=== PATIENT | female | born 2000 | race Caucasian/White ===

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

== ENCOUNTER → 2022-01-19 06:24 | Outpatient (CLI) | payer OTHER, SELFPAY ==
[2022-01-23 00:08] LABS: Neisseria gonorrhoeae, NAA Negative (Negative)
== END ==
PROVIDERS: Visit Provider Obstetrics & Gynecology
DX: Z11.3 Encounter for screening for infections with a predominantly sexual mode of transmission (principal)
CPT/HCPCS: 87491; 87591

== ENCOUNTER → 2022-03-21 10:28 | Outpatient (CLI) | payer OTHER, SELFPAY ==
[2022-03-21 10:54] LABS: Basophils # 0.1 K/mm3 (0-0.2); Basophils % 1.3 % (0.1-2.0); Eosinophils # 0.2 K/mm3 (0.0-0.4); Eosinophils % 3.3 % (0.1-12.0); Hematocrit 40.2 % (37.0-47.0); Hemoglobin 12.9 g/dL (12.2-16.2); Lymphocytes # 1.7 K/mm3 (0.7-4.5); Lymphocytes % 26.5 % (10-50); Mean Corpuscular HGB Conc 32.2 g/dL (31.8-35.4); Mean Corpuscular Hemoglobin 28.9 pg (27.0-31.2); Mean Corpuscular Volume 89.9 fl (81-99); Mean Platelet Volume 8.2 fl (7.4-10.4); Monocytes # 0.2 K/mm3 (0.1-1.0); Monocytes % 3.7 % (1.7-9.3); Neutrophils # 4.1 K/mm3 (1.8-7.8); Neutrophils % 65.2 % (37.0-80.0); Platelet Count 306 K/mm3 (142-424); Red Blood Count 4.48 M/mm3 (4.20-5.40); Red Cell Distribution Width 15.1 % (11.5-17.5); White Blood Count 6.3 K/mm3 (4.5-13.0)
[2022-03-21 11:12] LABS: Alanine Aminotransferase 20 U/L (12-78); Albumin Level 4.9 g/dl (3.5-5.0); Albumin/Globulin Ratio 1.8 (1.1-1.8); Alkaline Phosphatase 67 U/L (38-126); Anion Gap 19.8 mEq/L (5-15); Aspartate Amino Transferase 26 U/L (14-36); Bilirubin,Total 0.5 mg/dl (0.2-1.3); Blood Urea Nitrogen 13 mg/dl (7-17); Calcium 9.8 mg/dl (8.4-10.2); Carbon Dioxide 28 mmol/L (22.0-30.0); Chloride 95 mmol/L (98-107); Estimated Glomerular Filt Rate 129 ml/min (>60); GFR (African American) 156 ML/MIN (>60); Globulin 2.7 g/dL (1.3-3.2); Glucose 85 mg/dl (74-100); Potassium 3.8 mmoL/L (3.5-5.1); Sodium 139 mmol/L (136-145); Total Protein,Serum 7.6 g/dl (6.3-8.2)
[2022-03-21 11:28] LABS: HCG,Quantitative < 2 mIU/ml (0-5.42)
== END ==
PROVIDERS: Visit Provider Obstetrics & Gynecology
DX: Z01.812 Encounter for preprocedural laboratory examination (principal); A63.0 Anogenital (venereal) warts
CPT/HCPCS: 36415; 80053; 84702; 85025

== ENCOUNTER 2022-03-24 06:09 | Day surgery (SDC) | payer OTHER, SELFPAY ==
[2022-03-24] VITALS (11 sets, daily range): BP systolic 117–136; BP diastolic 59–84; PULSE 79–92; RESP 14–20; TEMP 36.3–43; O2SAT 100; BMI 30.4
--- NOTE | 2022-03-24 06:58 | P.PN_ITS ---
[facility] Disclaimer: The information contained in this section may have been updated after the patient was seen, as this information can be updated by other users. 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 No significant past medical history Surgical History No significant past surgical history Family History (Updated 03/24/22 @ 06:34 by Laura Kaur RN) Other Diabetes Social History (Updated 03/24/22 @ 06:35 by Laura Kaur RN) Smoking Status: Never smoker alcohol intake: never substance use type: denies use current occupational status: employed Travel in the last 8 weeks: None caffeine: Yes [facility] Anesthesia Checklist Patient Identification Patient Identification: Arm Band and Family Structural Data Admitted From: Home Planned Operative Procedure/s: Excision vaginal Conbdyloma Consent for Planned Operative Procedure(s) Verified: Yes Verified Documents: Surgical Consent NPO Status Verified Time NPO: 00:00 Additional verifications Patient : No Anesthesia Reactions: No Hx Blood Transfusions: No Blood Transfusion Reaction: No Cephalosporin Allergy: No Previous Colonoscopy: No Airway Assessment C-Spine Mobility Assessed: Yes TMJ Mobility Assessed: Yes Dentition: Good Dentition Neurological Assessment Level of Consciousness: Awake, Alert, Appropriate and Follows Commands Hx Seizures: No Numbness or tingling in extremities: No Anesthesia Plan Anesthesia Risk discussed: Yes ASA Class: I Anesthesia Type: General
--- NOTE | 2022-03-24 08:50 | P.PNANES_ITS ---
[facility] Anesthesia Record Part I Anesthesia Record I Intake, IV Amount: 500 Estimated blood loss (mL): 0 Urine output (mL): 75 Blood Products used (#): none Blood Pressure: 136/84 SaO2: 100 Pulse Rate: 92 Respiratory Rate: 20 Temperature: 97.8 F Patient is:: Drowsy and Stable Stable to PACU at:: 08:45
--- NOTE | 2022-03-24 09:21 | SUR.PHASEI ---
0912 called and gave detailed report to Duane Mcgregor RN 0915 transported via stretcher to post op. vital signs stable. denies pain at this time. left in stable condition with Daxa Coker RN at bedside.
--- NOTE | 2022-03-24 11:58 | P.OP_ITS ---
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 She was prepped/draped in lithotomy position. Wet towels were placed around the vulva. The vulva was examined to identify the location of all lesions. The CO2 laser was used with a diameter of 1mm and a settin gof 10 hurtado continuous to fulgurate all lesions on labia, vaginal forchette and above clitoral tan. 3 small lesions were noted inferior but immediately adjacent to the glans clitoris which were too close in proximity to the glans for fulguration. After dessication was completed, the fulguration sites were examined and hemostatis was noted. Sividine cream was applied to all fulguration sites, she was taken out of lithotomy position, extubated and taken to the PACU in stable condition. All sponge/lap/instrument counts correct. Total EBL: 0 cc. Condition: stable Disposition: PACU Specimens:: none Complications:: none
--- NOTE | 2022-03-24 13:43 | P.PNANES_ITS ---
[facility] Anesthesia Record Part II Anesthesia Record Part II Discharge Time: 09:15 Destination: Surgical Day Care (OP Surgery) PACU nurse assessment reviewed?: Yes Patient Condition:: Good Anesthesia Complications:: None Swallowing reflex intact?: Yes Cyanosis?: No Blood Pressure: 134/79 Pulse Rate: 79 Temperature: 97.6 F Mental Status: Alert & Oriented Pain level:: 0 Nausea and/or vomitting:: None Intake, IV Amount: 0
== END 2022-03-24 10:14 | disposition home or self-care (01) ==
PROVIDERS: PCP Obstetrics & Gynecology; Visit Provider Obstetrics & Gynecology
PROC: (CPT 56515; principal; 2022-03-24 07:30)
DX: A63.0 Anogenital (venereal) warts (principal)
CPT/HCPCS: 56515; 96374; J2405

== ENCOUNTER → 2022-12-15 10:50 | Outpatient (CLI) | payer BC, SELFPAY ==
[2022-12-16 10:44] LABS: HCV Ab Non Reactive (Non Reactive); HIV Screen 4th Generation wRfx Non Reactive (Non Reactive); Hep B Surface Ab, Qual Non Reactive (.)
[2022-12-16 11:30] LABS: Rapid Plasma Reagin Ab Titer Non Reactive (NonRea<1:1)
== END ==
PROVIDERS: Visit Provider Obstetrics & Gynecology
DX: Z20.2 Contact with and (suspected) exposure to infections with a predominantly sexual mode of transmission (principal); Z11.4 Encounter for screening for human immunodeficiency virus [HIV]
CPT/HCPCS: 36415; 86593; 86703; 86706; G0432